=== PATIENT | female | born 1980 | race Caucasian/White ===

== ENCOUNTER 2018-10-23 13:15 | Emergency (ER) | payer OTHER ==
[~2018-10-23] VITALS: Ht 175.3 cm; Wt 127.0 kg
--- OUTSIDE RECORDS SUMMARY | 2018-10-23 13:17 | XMS REPORT | Continuity of Care Document ---
Author Author [facility] Interface Address Unknown Phone Unavailable Problems Problem Status Onset Date Classification Date Reported Comments Source Exposure to Influenzavirus 06/30/2017 Diagnosis 06/30/2017 [facility] Tobacco user 06/30/2017 Diagnosis 06/30/2017 [facility] Tobacco use cessation education 06/30/2017 Diagnosis 06/30/2017 [facility] Lower respiratory tract infection 04/28/2016 Diagnosis 04/28/2016 [facility] Acute upper respiratory infection 03/29/2016 Diagnosis 04/28/2016 [facility] Discharge Diagnosis: Acute cystitis 04/08/2015 04/11/2015 [facility] Discharge Diagnosis: Ureterolithiasis 04/08/2015 04/11/2015 [facility] PAIN Active 04/08/2015 [facility] Acute Upper Respiratory Infection Problem 06/30/2017 [facility] Medications Medication Details Route Status Patient Instructions Ordering Provider Order Date Source Acetaminophen 325 MG / Hydrocodone Bitartrate 5 MG Oral Tablet [[place] 5/325] 1 tab, Route: PO, Drug Form: TAB, Dosing Weight 122.273, kg, ONCE, STAT, Start date: 04/08/15 9:14:00, Stop date: 04/08/15 9:14:00Notes: (Same as: [place] 325/5) Do not exceed 4gm/day of acetaminophen. Inactive 04/08/2015 [facility] Ondansetron 4 MG Disintegrating Tablet [Zofran] 4 mg=1 tab, PO, TID, Dissolve tab under tongue, X 5 day, # 15 tab, 0 Refill(s) Active 04/08/2015 [facility] ciprofloxacin 500 mg oral tablet 500 mg=1 tab, PO, Q12H, X 7 day, # 14 tab, 0 Refill(s) Active 04/08/2015 [facility] tramadol hydrochloride 50 MG Oral Tablet 50 mg=1 tab, PO, Q6H, PRN Pain, X 7 day, # 28 tab, 0 Refill(s) Active 04/08/2015 [facility] ibuprofen 600 mg oral tablet 600 mg=1 tab, PO, Q8H, PRN pain, # 30 tab, 0 Refill(s) Active 04/08/2015 [facility] Tamsulosin hydrochloride 0.4 MG Oral Capsule [Flomax] 0.4 mg=1 cap, PO, Daily, # 30 cap, 0 Refill(s) Active 04/08/2015 [facility] Ceftriaxone 1 gm, Route: IVPB, Drug form: PDR/INJ, ONCE, Dosing Weight 122.273, kg, Priority: STAT, Start date: 04/08/15 8:28:00, Stop date: 04/08/15 8:28:00 Inactive 04/08/2015 [facility] Ondansetron 4 mg, Route: IVP, ONCE, Dosing Weight 122.273, kg, Priority: STAT, Start date: 04/08/15 6:10:00, Stop date: 04/08/15 6:10:00 Inactive 04/08/2015 [facility] Morphine 4 mg, Route: IVP, ONCE, Dosing Weight 122.273, kg, Priority: STAT, Start date: 04/08/15 6:10:00, Stop date: 04/08/15 6:10:00 Inactive 04/08/2015 [facility] Ketorolac 30 mg, Route: IVP, ONCE, Dosing Weight 122.273, kg, Priority: STAT, Start date: 04/08/15 6:10:00, Stop date: 04/08/15 6:10:00 Inactive 04/08/2015 [facility] Saline Flush 0.9% 10 mL, Route: IVP, Drug Form: INJ, Dosing Weight 122.273, kg, PRN, PRN Line Flush, Start date: 04/08/15 6:10:00, Duration: 30 day, Stop date: 05/08/15 6:09:00Notes: (Same as: [facility] Posiflush) Inactive 04/08/2015 [facility] Sodium Chloride 0.154 MEQ/ML Injectable Solution 1,000 mL, Infuse Over: 1 hr, Route: IV, ONCE, Priority: STAT, Dosing Weight 122.273 kg, Start date: 04/08/15 6:10:00, Duration: 1 doses or times, Stop date: 04/08/15 6:10:00 Inactive 04/08/2015 [facility] Chantix Starting Month Box 0.5 mg (11)-1 mg (42) tablets in dose pack Chantix Starting Month Box 0.5 mg (11)-1 mg (42) tablets in dose pack 1 starter pack as directed Active [facility] Acetaminophen 325 MG / Hydrocodone Bitartrate 10 MG Oral Tablet hydrocodone 10 mg-acetaminophen 325 mg tablet 1 TABLET BY MOUTH EVERY FOUR HOURS NEEDED FOR PAIN Active [facility] Oseltamivir 75 MG Oral Capsule oseltamivir 75 mg capsule Take 1 capsule every day by oral route with meals for 10 days. Active [facility] Percocet Percocet Active [facility] 200 ACTUAT Albuterol 0.09 MG/ACTUAT Metered Dose Inhaler albuterol sulfate HFA 90 mcg/actuation aerosol inhaler Inhale 2 puffs every 4 hours by inhalation route as needed for 14 days. Active [facility] Brompheniramine Maleate 0.4 MG/ML / Dextromethorphan Hydrobromide 2 MG/ML / Pseudoephedrine Hydrochloride 6 MG/ML Oral Solution [Bromfed DM] Bromfed DM 2 mg-30 mg-10 mg/5 mL syrup Take 10 mL every 6 hours by oral route as needed for 5 days. Active [facility] Azithromycin 250 MG Oral Tablet Zithromax Z-Reid 250 mg tablet TAKE 2 TABLETS (500 MG) BY ORAL ROUTE ONCE DAILY FOR 1 DAY THEN 1 TABLET (250 MG) BY ORAL ROUTE ONCE DAILY FOR 4 DAYS Active [facility] Allergies, Adverse Reactions, Alerts Substance Category Reaction Severity Reaction type Status Date Reported Comments Source Immunizations Immunization Date Given Site Status Last Updated Comments Source influenza, injectable, quadrivalent 03/15/2017 completed [facility] influenza, seasonal, injectable 02/13/2016 completed [facility] Results Order Name Results Value Reference Range Date Interpretation Comments Source Influenza A negative 06/30/2017 [facility] Influenza B negative 06/30/2017 [facility] RESULT negative 04/28/2016 [facility] SWAB LOCATION Left and Right tonsillar pillars 04/28/2016 [facility] RESULT negative 03/29/2016 [facility] SWAB LOCATION Left and Right tonsillar pillars 03/29/2016 [facility] CHEM PANEL B/C Ratio 9 6 - 25 04/08/2015 [facility] CHEM PANEL AGAP 14.8 meq/L 10.0 - 20.0 04/08/2015 [facility] CHEM PANEL A/G Ratio 0.9 0.7 - 1.6 04/08/2015 [facility] CHEM PANEL Globulin 4.0 g/dL 2.0 - 4.0 04/08/2015 [facility] CHEM PANEL eGFR 61 mL/min/1.73m2 04/08/2015 Result Comment: The eGFR is calculated using the CKD-EPI formula. In most young, healthy individuals the eGFR will be >90 mL/min/1.73m2. The eGFR declines with age. An eGFR of 60-89 may be normal in some populations, particularly the elderly, for whom the CKD-EPI formula has not been extensively validated. Use of the eGFR is not recommended in the following populations: Individuals with unstable creatinine concentrations, including patients and those with serious co-morbid conditions. Patients with extremes in muscle mass or diet. The data above are obtained from the National Kidney Disease Education Program (NKDEP) which additionally recommends that when the eGFR is used in patients with extremes of body mass index for purposes of drug dosing, the eGFR should be multiplied by the estimated BMI. [facility] CHEM PANEL Alk Phos 61 unit/L 39 - 136 04/08/2015 [facility] CHEM PANEL AST 37 unit/L 0 - 37 04/08/2015 [facility] CHEM PANEL Bili Total 0.4 mg/dL 0.2 - 1.3 04/08/2015 [facility] CHEM PANEL BUN 11 mg/dL 7 - 22 04/08/2015 [facility] CHEM PANEL Sodium Lvl 138 meq/L 135 - 145 04/08/2015 [facility] CHEM PANEL Creatinine Lvl 1.17 mg/dL 0.50 - 1.40 04/08/2015 [facility] CHEM PANEL Chloride Lvl 105 meq/L 95 - 109 04/08/2015 [facility] CHEM PANEL Potassium Lvl 4.8 meq/L 3.5 - 5.1 04/08/2015 [facility] CHEM PANEL CO2 23 meq/L 24 - 32 04/08/2015 [facility] CHEM PANEL Albumin Lvl 3.6 g/dL 3.5 - 5.0 04/08/2015 [facility] CHEM PANEL ALT 31 unit/L 0 - 65 04/08/2015 [facility] CHEM PANEL Total Protein 7.6 g/dL 6.4 - 8.4 04/08/2015 [facility] CHEM PANEL Calcium Lvl 8.9 mg/dL 8.5 - 10.5 04/08/2015 [facility] CHEM PANEL Glucose Lvl 114 mg/dL 70 - 99 04/08/2015 [facility] HEMATOLOGY MPV 8.5 fL 7.4 - 10.4 04/08/2015 [facility] HEMATOLOGY Platelet 244 K/CMM 133 - 450 04/08/2015 [facility] HEMATOLOGY RDW 16.0 % 11.5 - 14.5 04/08/2015 [facility] HEMATOLOGY MCV 81.2 fL 80.0 - 98.0 04/08/2015 [facility] HEMATOLOGY WBC 8.1 K/CMM 3.7 - 10.4 04/08/2015 [facility] HEMATOLOGY MCHC 31.4 g/dL 32.0 - 36.0 04/08/2015 [facility] [place] MCH 25.5 pg 27.0 - 31.0 04/08/2015 [facility] HEMATOLOGY Hct 40.7 % 36.0 - 48.0 04/08/2015 [facility] HEMATOLOGY RBC 5.01 M/CMM 4.20 - 5.40 04/08/2015 [facility] HEMATOLOGY Hgb 12.8 g/dL 12.0 - 16.0 04/08/2015 [facility] HEMATOLOGY Lymphocytes # 1.6 K/CMM 1.0 - 5.5 04/08/2015 [facility] HEMATOLOGY Segs-Bands # 5.9 K/CMM 1.5 - 8.1 04/08/2015 [facility] HEMATOLOGY Eosinophils # 0.1 K/CMM 0.0 - 0.5 04/08/2015 [facility] HEMATOLOGY Monocytes # 0.5 K/CMM 0.0 - 0.8 04/08/2015 [facility] HEMATOLOGY Basophils 0.3 % 0.0 - 1.0 04/08/2015 [facility] HEMATOLOGY Lymphocytes 19.4 % 20.0 - 40.0 04/08/2015 [facility] HEMATOLOGY Segs 73.5 % 45.0 - 75.0 04/08/2015 [facility] HEMATOLOGY Eosinophils 1.1 % 0.0 - 4.0 04/08/2015 [facility] HEMATOLOGY Monocytes 5.7 % 2.0 - 12.0 04/08/2015 [facility] URINE AND STOOL UA Leuk Est Negative (04/08/15 6:24 AM) Negative 04/08/2015 [facility] URINE AND STOOL UA WBC 13 /HPF 0 - 5 04/08/2015 [facility] URINE AND STOOL UA Sq Epi Many /LPF Few /LPF 04/08/2015 [facility] URINE AND STOOL UA Color Ysabel 04/08/2015 [facility] URINE AND STOOL UA Ketones Negative mg/dL Negative mg/dL 04/08/2015 [facility] URINE AND STOOL UA Glucose Negative mg/dL Negative mg/dL 04/08/2015 [facility] URINE AND STOOL UA Blood Small *ABN* (04/08/15 6:24 AM) Negative 04/08/2015 [facility] URINE AND STOOL UA Bili Negative *NA* (04/08/15 6:24 AM) Negative 04/08/2015 [facility] URINE AND STOOL UA Mucus Few /LPF None Seen /LPF 04/08/2015 [facility] URINE AND STOOL UA RBC 79 /HPF 0 - 2 04/08/2015 [facility] URINE AND STOOL UA Nitrite Positive *ABN* (04/08/15 6:24 AM) Negative 04/08/2015 [facility] URINE AND STOOL UA Urobilinogen 4.0 mg/dL 0.1 - 1.0 04/08/2015 [facility] URINE AND STOOL UA Hyal Cast 1 /LPF 0 - 2 04/08/2015 [facility] URINE AND STOOL UA CaOx Ayah Few /HPF None Seen /HPF 04/08/2015 [facility] URINE AND STOOL UA Turbidity Clear (04/08/15 6:24 AM) Clear 04/08/2015 [facility] URINE AND STOOL UA Protein 30 mg/dL Negative mg/dL 04/08/2015 [facility] URINE AND STOOL UA Spec Grav 1.023 <=1.030 04/08/2015 [facility] URINE AND STOOL UA pH 5.0 5.0 - 8.0 04/08/2015 [facility] URINE CHEM U Preg Negative (04/08/15 6:24 AM) Negative 04/08/2015 [facility] Renal Stone CT Renal Stone CT CLINICAL HISTORY: Acute left-sided abdominal pain. CT abdomen and pelvis without contrast. COMPARISON: No prior. Left hydronephrosis and hydroureter. Perinephric and periureteric stranding on the left. Left ureter appears dilated to the ureterovesicular junction region. Although there are numerous phleboliths in the left side of the pelvis, a small calcification approximates the UVJ and is suspected to be 2 to 3 mm distal ureteral calculus. A punctate 2 mm nonobstructive left renal calculus is also present. Noncontrast visualized upper abdomen otherwise normal. No bowel obstruction or distention. No ascites. No evidence for appendicitis or diverticulitis. No ascites or pathologic pelvic fluid or mass otherwise. No retroperitoneal adenopathy. Abdominal aorta normal. IMPRESSION: Left hydronephrosis and hydroureter to approximately the UVJ level. Suspect small 3 mm distal ureteral calculus. SL:14 04/08/2015 - - Read by: Clayton Prater MD Dictated Date/time: 04/08/15 07:55 Electronically Signed by: Clayton Prater MD 04/08/15 08:02 FINAL REPORT [facility] Vital Signs Vital Sign Value Date Comments Source Diastolic (mm Hg) 80 06/30/2017 [facility] Height 69 06/30/2017 [facility] Systolic (mm Hg) 120 06/30/2017 [facility] Weight 262 06/30/2017 [facility] Diastolic (mm Hg) 80 04/28/2016 [facility] Height 68 04/28/2016 [facility] Systolic (mm Hg) 120 04/28/2016 [facility] Weight 237 04/28/2016 [facility] Diastolic (mm Hg) 76 03/29/2016 [facility] Height 68 03/29/2016 [facility] Systolic (mm Hg) 120 03/29/2016 [facility] Weight 247 03/29/2016 [facility] Temperature Oral (F) 98.3 F 04/08/2015 [facility] Respitory Rate 20 04/08/2015 [facility] Heart Rate 74 04/08/2015 [facility] Systolic (mm Hg) 124 04/08/2015 [facility] Diastolic (mm Hg) 72 04/08/2015 [facility] Temperature Oral (F) 98.3 F 04/08/2015 [facility] Heart Rate 67 04/08/2015 [facility] Systolic (mm Hg) 128 04/08/2015 [facility] Diastolic (mm Hg) 60 04/08/2015 [facility] Respitory Rate 20 04/08/2015 [facility] Weight 122.273 04/08/2015 [facility] Height 167.64 cm 04/08/2015 [facility] BMI Calculated 43.51 04/08/2015 [facility] Respitory Rate 18 04/08/2015 [facility] Temperature Oral (F) 97.7 F 04/08/2015 [facility] Systolic (mm Hg) 147 04/08/2015 [facility] Diastolic (mm Hg) 89 04/08/2015 [facility] Heart Rate 72 04/08/2015 [facility] Encounters Location Location Details Encounter Type Encounter Number Reason For Visit Attending Provider ADM Date DC Date Status Source [facility] [id number] Nohemi Montanez 04/08/2015 04/08/2015 [facility] [place] - [facility] - [id number] Diamante Johnson, [employer]: [address] [place] [address], Ph. [id number] Diamante Alex 03/29/2016 [facility] [place] [facility] - [id number] Diamante Alex, [employer]ER: [address] [place] [address], Ph. [id number] Diamante Alex 03/29/2016 [facility] [place] - [facility] - [id number] Garland Lombardo, [employer]ER-C: [address] [place] [address], Ph. [phone] [id number] Garland Lombardo 04/28/2016 [facility] Outpatient [id number] JAMES LOPEZ 06/22/2016 Active [facility] - [facility] - [id number] Tigre Lebron, [employer]ER-C: [address] [place] [address], Ph. [id number] Tigre Lebron 06/30/2017 [facility] Procedures Procedure Code Date Perfomer Comments Source Tubal Ligation [facility]
--- OUTSIDE RECORDS SUMMARY | 2018-10-23 13:17 | XMS REPORT | Encounter Summary ---
Author Organization Unknown Address [address] [place] [address] Phone [phone] Reason for Visit cough, sore throat, congestion x 2 days Instructions 1. Acute upper respiratory infection rapid strep group A, throat Bromfed DM 2 mg-30 mg-10 mg/5 mL syrup albuterol sulfate HFA 90 mcg/actuation aerosol inhaler Discussion Note: None recorded. Patient educational handouts: No information available. Plan of Care Reminders Provider Appointments None recorded. Lab Rapid Strep Group a, Throat 03/29/2016 [facility] Referral None recorded. Procedures None recorded. Surgeries None recorded. Imaging None recorded. Medications Name Start Date albuterol sulfate HFA 90 mcg/actuation aerosol inhaler Inhale 2 puffs every 4 hours by inhalation route as needed for 14 days. Bromfed DM 2 mg-30 mg-10 mg/5 mL syrup Take 10 mL every 6 hours by oral route as needed for 5 days. Medications Administered None recorded. Vitals Height Weight BMI Blood Pressure 5 ft 8 in 247 lbs 37.6 120/76 Lab Results Date Name Result Description Value Range Status Rapid Strep Group a, Throat Result negative Swab Location Left and Right tonsillar pillars Allergies Name Reaction Severity Onset NKDA Problems Name Status Onset Date Source Acute Upper Respiratory Infection Active Encounter Procedures Date Name Performed by Tubal Ligation Information not available Vaccine List Vaccine Type influenza, seasonal, injectable 02/12/2016 Social History Smoking Status Current Every Day Smoker Past Encounters 03/29/2016 Acute Upper Respiratory Infection ARNULFO Gamb[place]: [address] [place] [address], Ph. History of Present Illness [id number] Reported By: Patient HPI: Location: throat, chest. Quality: productive cough, sore throat, colored phlegm, nasal/sinus congestion. Duration: 2days. Severity: moderate. Onset/Timing: sudden. Context: no foreign travel, sick contact, smoker. Modifying factors: OTC medication. Associated Symptoms: no wheezing, no change in number of pillows needed to sleep at night, no sweats, no significant weight gain, no significant weight loss, no morning cough, no vomiting, no diarrhea, no rash, no nausea, green sputum, shortness of breath, fatigue, sore throat Review of Systems Basic Reported By: Patient Constitutional: Constitutional: no fever Eyes: Eyes: no eye complaints Armr-Fhdf-Equzv-Throat: Ears: ear pain. Nose: nose/sinus problems. Mouth/Throat: no bleeding gums, no mouth complaints, no teeth problems, sore throat Cardiovascular: Cardiovascular: no chest pain, no shortness of breath, no known heart murmur Respiratory: Respiratory: no wheezing, no shortness of breath, cough Gastrointestinal: Gastrointestinal: no abdominal pain, no vomiting / diarrhea Genitourinary: Genitourinary: no urinary complaints, no discharge Musculoskeletal: Musculoskeletal: no muscle aches, no muscle weakness, no arthralgias/joint pain, no back pain Skin: Skin: no abnormal / changing mole, no jaundice, no rashes Neurologic: Neurologic: no loss of consciousness, no weakness, no numbness, no seizures, no dizziness, no headaches Physical Exam Adult Basic, Adult Female Complete Constitutional: General Appearance: healthy-appearing, well-nourished, well-developed. Level of Distress: NAD. Ambulation: ambulating normally Psychiatric: Mental Status: active and alert. Orientation: to time, to place, to person Eyes: Lids and Conjunctivae: non-injected, no discharge, no pallor Btg-Vqov-Iozvz-Throat: Ears: no lesions on external ear, no outer ear tenderness, EACs clear, TMs clear. Hearing: no hearing loss. Nose: no lesions on external nose, no septal deviation, nasal passages clear, no sinus tenderness, post nasal drip; turbinates swollen. Lips, Teeth, and Gums: no mouth or lip ulcers, no bleeding gums, normal dentition. Oropharynx: moist mucous membranes, no exudates, tonsils not enlarged, erythema Neck: Lymph Nodes: no cervical LAD Lungs: Respiratory effort: no dyspnea, no tachypnea, no use of accessory muscles. Auscultation: breath sounds normal Cardiovascular: Heart Auscultation: RRR Neurologic: Gait and Station: normal gait
--- OUTSIDE RECORDS SUMMARY | 2018-10-23 13:17 | XMS REPORT | Summary of Care ---
Author Author [facility] Address Unknown Phone Unavailable Encounter CARO Mcrae(AYUSH) [id number] Date(s): 04/08/15 - 04/08/15 [facility] [address] [place] [address]- Discharge Diagnosis: Acute cystitis Discharge Diagnosis: Ureterolithiasis Discharge Disposition: Home Attending Physician: Nohemi Montanez MD Vital Signs 1 2 3 Most recent to oldest [Reference Range]: 167.64 cm (04/08/15 5:40 AM) Height 98.3 DegF (04/08/15 9:48 AM) 98.3 DegF (04/08/15 7:57 AM) 97.7 DegF (04/08/15 5:40 AM) Temperature Oral [96.4-99.1 DegF] 124/72 mmHg (04/08/15 9:48 AM) 128/60 mmHg (04/08/15 7:57 AM) 147/89 mmHg *HI* (04/08/15 5:40 AM) Blood Pressure [90-140/60-90 mmHg] 20 BRMIN (04/08/15 9:48 AM) 20 BRMIN (04/08/15 7:57 AM) 18 BRMIN (04/08/15 5:40 AM) Respiratory Rate [14-20 BRMIN] 74 bpm (04/08/15 9:48 AM) 67 bpm (04/08/15 7:57 AM) 72 bpm (04/08/15 5:40 AM) Peripheral Pulse Rate [60-100 bpm] 122.273 kg (04/08/15 5:40 AM) Weight 43.51 m2 (04/08/15 5:40 AM) Body Mass Index Problem List No data available for this section Allergies, Adverse Reactions, Alerts Substance Reaction Severity Status NKDA Active Medications cefTRIAXone 1 gm, Route: IVPB, Drug form: PDR/INJ, ONCE, Dosing Weight 122.273, kg, Priority : STAT, Start date: 04/08/15 8:28:00, Stop date: 04/08/15 8:28:00 Start Date: 04/08/15 Stop Date: 04/08/15 Status: Completed ciprofloxacin 500 mg oral tablet 500 mg=1 tab, PO, Q12H, X 7 day, # 14 tab, 0 Refill(s) Start Date: 04/08/15 Stop Date: 04/15/15 Status: Ordered Flomax 0.4 mg oral capsule 0.4 mg=1 cap, PO, Daily, # 30 cap, 0 Refill(s) Start Date: 04/08/15 Status: Ordered ibuprofen 600 mg oral tablet 600 mg=1 tab, PO, Q8H, PRN pain, # 30 tab, 0 Refill(s) Start Date: 04/08/15 Status: Ordered ketOROLAC 30 mg, Route: IVP, ONCE, Dosing Weight 122.273, kg, Priority: STAT, Start date: 04/08/15 6:10:00, Stop date: 04/08/15 6:10:00 Start Date: 04/08/15 Stop Date: 04/08/15 Status: Completed morphine Sulfate 4 mg, Route: IVP, ONCE, Dosing Weight 122.273, kg, Priority: STAT, Start date: 06/08/14 6:10:00, Stop date: 04/08/15 6:10:00 Start Date: 04/08/15 Stop Date: 04/08/15 Status: Completed Valyermo 5/325 oral tablet 1 tab, Route: PO, Drug Form: TAB, Dosing Weight 122.273, kg, ONCE, STAT, Start d ate: 04/08/15 9:14:00, Stop date: 04/08/15 9:14:00 Notes: (Same as: Valyermo 325/5) Do not exceed 4gm/day of acetaminophen. Start Date: 04/08/15 Stop Date: 04/08/15 Status: Completed ondansetron 4 mg, Route: IVP, ONCE, Dosing Weight 122.273, kg, Priority: STAT, Start date: 06/08/14 6:10:00, Stop date: 04/08/15 6:10:00 Start Date: 04/08/15 Stop Date: 04/08/15 Status: Completed Saline Flush 0.9% 10 mL, Route: IVP, Drug Form: INJ, Dosing Weight 122.273, kg, PRN, PRN Line Flus h, Start date: 04/08/15 6:10:00, Duration: 30 day, Stop date: 05/08/15 6:09:00 Notes: (Same as: BD Posiflush) Start Date: 04/08/15 Stop Date: 04/08/15 Status: Discontinued Sodium Chloride 0.9% (Bolus) IV 1,000 mL, Infuse Over: 1 hr, Route: IV, ONCE, Priority: STAT, Dosing Weight 122. 273 kg, Start date: 04/08/15 6:10:00, Duration: 1 doses or times, Stop date: 6:10:00 Start Date: 04/08/15 Stop Date: 04/08/15 Status: Completed tramadol 50 mg oral tablet 50 mg=1 tab, PO, Q6H, PRN Pain, X 7 day, # 28 tab, 0 Refill(s) Start Date: 04/08/15 Stop Date: 04/15/15 Status: Ordered Zofran ODT 4 mg oral tablet, disintegrating 4 mg=1 tab, PO, TID, Dissolve tab under tongue, X 5 day, # 15 tab, 0 Refill(s) Start Date: 04/08/15 Stop Date: 04/13/15 Status: Ordered Results ELECTROLYTES Most recent to 1 oldest [Reference Range]: Sodium Lvl [135-145 138 mEq/L mEq/L] (04/08/15 6:24 AM) Potassium Lvl 4.8 mEq/L [3.5-5.1 mEq/L] (04/08/15 6:24 AM) Chloride Lvl [95-109 105 mEq/L mEq/L] (04/08/15 6:24 AM) CO2 [24-32 mEq/L] 23 mEq/L *LOW* (04/08/15 6:24 AM) AGAP [10.0-20.0 14.8 mEq/L mEq/L] (04/08/15 6:24 AM) CHEM PANEL Most recent to 1 oldest [Reference Range]: Creatinine Lvl 1.17 mg/dL [0.50-1.40 mg/dL] (04/08/15 6:24 AM) eGFR 61 mL/min/1.73m2 1 *NA* (04/08/15 6:24 AM) BUN [7-22 mg/dL] 11 mg/dL (04/08/15 6:24 AM) B/C Ratio [6-25] 9 (04/08/15 6:24 AM) Glucose Lvl [70-99 114 mg/dL mg/dL] *HI* (04/08/15 6:24 AM) Total Protein 7.6 g/dL [6.4-8.4 g/dL] (04/08/15 6:24 AM) Albumin Lvl [3.5-5.0 3.6 g/dL g/dL] (04/08/15 6:24 AM) Globulin [2.0-4.0 4.0 g/dL g/dL] (04/08/15 6:24 AM) A/G Ratio [0.7-1.6] 0.9 (04/08/15 6:24 AM) Calcium Lvl 8.9 mg/dL [8.5-10.5 mg/dL] (04/08/15 6:24 AM) ALT [0-65 unit/L] 31 unit/L (04/08/15 6:24 AM) AST [0-37 unit/L] 37 unit/L (04/08/15 6:24 AM) Alk Phos [39-136 61 unit/L unit/L] (04/08/15 6:24 AM) Bili Total [0.2-1.3 0.4 mg/dL mg/dL] (04/08/15 6:24 AM) 1Result Comment: The eGFR is calculated using the [...] from the National Kid[employer] Disease Education Program ( NKDEP) which additionally recommends that when the eGFR is used in patients with extremes of body mass index for purposes of drug dosing, the eGFR should be mul tiplied by the estimated BMI. URINE CHEM Most recent to 1 oldest [Reference Range]: U Preg [Negative] Negative (04/08/15 6:24 AM) URINE AND STOOL Most recent to 1 oldest [Reference Range]: UA Turbidity [Clear] Clear (04/08/15 6:24 AM) UA Color Ysabel *NA* (04/08/15 6:24 AM) UA pH [5.0-8.0] 5.0 (04/08/15 6:24 AM) UA Spec Grav 1.023 [<=1.030] (04/08/15 6:24 AM) UA Glucose [Negative Negative mg/dL mg/dL] *NA* (04/08/15 6:24 AM) UA Blood [Negative] Small *ABN* (04/08/15 6:24 AM) UA Ketones [Negative Negative mg/dL mg/dL] *NA* (04/08/15 6:24 AM) UA Protein [Negative 30 mg/dL mg/dL] *ABN* (04/08/15 6:24 AM) UA Urobilinogen 4.0 mg/dL [0.1-1.0 mg/dL] *HI* (04/08/15 6:24 AM) UA Bili [Negative] Negative *NA* (04/08/15 6:24 AM) UA Leuk Est Negative [Negative] (04/08/15 6:24 AM) UA Nitrite Positive [Negative] *ABN* (04/08/15 6:24 AM) UA WBC [0-5 /HPF] 13 /HPF *HI* (04/08/15 6:24 AM) UA RBC [0-2 /HPF] 79 /HPF *HI* (04/08/15 6:24 AM) UA Sq Epi [Few /LPF] Many /LPF *ABN* (04/08/15 6:24 AM) UA Hyal Cast [0-2 1 /LPF /LPF] (04/08/15 6:24 AM) UA CaOx Ayah [None Few /HPF Seen /HPF] *NA* (04/08/15 6:24 AM) UA Mucus [None Seen Few /LPF /LPF] *NA* (04/08/15 6:24 AM) HEMATOLOGY Most recent to 1 oldest [Reference Range]: WBC [3.7-10.4 K/CMM] 8.1 K/CMM (04/08/15 6:24 AM) RBC [4.20-5.40 5.01 M/CMM M/CMM] (04/08/15 6:24 AM) Hgb [12.0-16.0 g/dL] 12.8 g/dL (04/08/15 6:24 AM) Hct [36.0-48.0 %] 40.7 % (04/08/15 6:24 AM) MCV [80.0-98.0 fL] 81.2 fL (04/08/15 6:24 AM) MCH [27.0-31.0 pg] 25.5 pg *LOW* (04/08/15:24 AM) MCHC [32.0-36.0 31.4 g/dL g/dL] *LOW* (04/08/15:24 AM) RDW [11.5-14.5 %] 16.0 % *HI* (04/08/15:24 AM) Platelet [133-450 244 K/CMM K/CMM] (04/08/15 6:24 AM) MPV [7.4-10.4 fL] 8.5 fL (04/08/15 6:24 AM) Segs [45.0-75.0 %] 73.5 % (04/08/15 6:24 AM) Lymphocytes 19.4 % [20.0-40.0 %] *LOW* (04/08/15:24 AM) Monocytes [2.0-12.0 5.7 % %] (04/08/15 6:24 AM) Eosinophils [0.0-4.0 1.1 % %] (04/08/15 6:24 AM) Basophils [0.0-1.0 0.3 % %] (04/08/15 6:24 AM) Segs-Bands # 5.9 K/CMM [1.5-8.1 K/CMM] (11/25/15 6:24 AM) Lymphocytes # 1.6 K/CMM [1.0-5.5 K/CMM] (04/08/15 6:24 AM) Monocytes # [0.0-0.8 0.5 K/CMM K/CMM] (04/08/15 6:24 AM) Eosinophils # 0.1 K/CMM [0.0-0.5 K/CMM] (04/08/15 6:24 AM) Immunizations No data available for this section Procedures No data available for this section Social History Social History Type Response Smoking Status Never smoker; Exposure to Tobacco Smoke None; Cigarette Smoking Last 365 Days No; Reg Smoking Cessation Counseling Yes Assessment and Plan No data available for this section
--- OUTSIDE RECORDS SUMMARY | 2018-10-23 13:17 | XMS REPORT | Encounter Summary ---
Author Organization Unknown Address [address] [place] [address] Phone [phone] Care Team Providers Care Assorter Name Role Phone Gabriella Childs 3 [phone] Reason for Visit Medical Complaint Instructions 1. Exposure to Influenzavirus rapid flu (A+B) oseltamivir 75 mg capsule 2. Tobacco user stopping smoking: care instructions Chantix Starting Month Box 0.5 mg (11)-1 mg (42) tablets in dose pack 3. Tobacco use cessation education stopping smokeless tobacco use: care instructions Discussion Note Pt is aaox3 and in NAD; verbalizes understanding of all instructions and has no further questions at this time Plan of Care Patient Instructions Take medications as prescribed and discussed; follow up with your PCP within 2-3 days or sooner should symptoms worsen. Go to the ER if you experience shortness of breath or difficulty breathing despite using medications prescribed today. Reminders Provider Appointments Medical 07/01/2017 9:15AM [id number], TECH Lab Rapid Flu (A+B) 06/30/2017 [facility] Referral None recorded. Procedures None recorded. Surgeries None recorded. Imaging None recorded. Medications Name Start Date Chantix Starting Month Box 0.5 mg (11)-1 mg (42) tablets in dose pack 1 starter pack as directed hydrocodone 10 mg-acetaminophen 325 mg tablet 1 TABLET BY MOUTH EVERY FOUR HOURS NEEDED FOR PAIN oseltamivir 75 mg capsule Take 1 capsule every day by oral route with meals for 10 days. Percocet Medications Administered None recorded. Vitals Height Weight BMI Blood Pressure 5 ft 9 in 262 lbs 38.7 kg/m2 120/80 mm[Hg] Lab Results Date Name Specimen Result Interpretation Description Value Range Status Address Rapid Flu (A+B) Influenza a negative [facility]: [address] [place] [address] Influenza B negative [facility]: [address] [place] [address] Allergies Code Code System Name Reaction Severity Status Onset NKDA Problems Name Status Onset Date Source Acute Upper Respiratory Infection Active Encounter Procedures Date Name Performed by Tubal Ligation Information not available Vaccine List Vaccine Type influenza, injectable, quadrivalent 03/15/2017 influenza, seasonal, injectable 02/13/2016 Social History Smoking Status Current Every Day Smoker Past Encounters 06/30/2017 Exposure to Influenzavirus; Tobacco User; Tobacco Use Cessation Education [facility]: [address] [place] [address], Ph. History of Present Illness [id number] Reported By: Patient HPI: Context: no sick contacts, no foreign travel, non-smoker. Associated Symptoms: no sputum production, no shortness of breath, no wheezing, no change in number of pillows needed to sleep at night, no sweats, no significant weight gain, no significant weight loss, no morning cough, no sore throat, no vomiting, no diarrhea, no rash, no nausea, no fever, no headache, muscle aches Review of Systems:ROS as noted in the HPI Review of Systems Basic Reported By: Patient Physical Exam Adult Basic, Adult Female Complete Reported By: Patient Constitutional: General Appearance: healthy-appearing, well-nourished, well-developed. Level of Distress: NAD Psychiatric: Mental Status: active and alert. Orientation: to time, to place, to person [id number]-Throat: Ears: no lesions on external ear, no outer ear tenderness, EACs clear, TMs clear. Hearing: no hearing loss. Nose: no lesions on external nose, nares patent, no septal deviation, nasal passages clear, no sinus tenderness, no nasal discharge. Lips, Teeth, and Gums: no mouth or lip ulcers, no bleeding gums, normal dentition. Oropharynx: moist mucous membranes, no erythema, no exudates, tonsils not enlarged Neck: Neck: FROM. Lymph Nodes: no cervical LAD, no supraclavicular LAD Lungs: Respiratory effort: no dyspnea, no tachypnea, no use of accessory muscles, no intercostal retractions. Auscultation: breath sounds normal Cardiovascular: Heart Auscultation: RRR, no murmurs. Neck vessels: no carotid bruits. Pulses including femoral / pedal: normal throughout Neurologic: Gait and Station: normal gait, normal station
--- OUTSIDE RECORDS SUMMARY | 2018-10-23 13:18 | XMS REPORT | Encounter Summary ---
Author Organization Unknown Address [address] [place] [address] Phone [phone] Reason for Visit Medical Complaint Instructions 1. Lower respiratory tract infection Zithromax Z-Reid 250 mg tablet Discussion Note: None recorded. Patient educational handouts: No information available. Plan of Care Patient Instructions take medications as prescribed. otc mucinex dm. may continue with albuterol to help with cough. follow up pcp Reminders Provider Appointments None recorded. Lab None recorded. Referral None recorded. Procedures None recorded. Surgeries None recorded. Imaging None recorded. Medications Name Start Date albuterol sulfate HFA 90 mcg/actuation aerosol inhaler Inhale 2 puffs every 4 hours by inhalation route as needed for 14 days. Bromfed DM 2 mg-30 mg-10 mg/5 mL syrup Take 10 mL every 6 hours by oral route as needed for 5 days. Zithromax Z-Reid 250 mg tablet TAKE 2 TABLETS (500 MG) BY ORAL ROUTE ONCE DAILY FOR 1 DAY THEN 1 TABLET (250 MG) BY ORAL ROUTE ONCE DAILY FOR 4 DAYS Medications Administered None recorded. Vitals Height Weight BMI Blood Pressure 5 ft 8 in 237 lbs 36 120/80 Lab Results Date Name Result Description Value [...] Status Current Every Day Smoker Past Encounters 04/28/2016 Lower Respiratory Tract Infection [facility]: [address] [place] [address], Ph. 03/29/2016 Acute Upper Respiratory Infection [facility]: [address] [place] [address], Ph. History of Present Illness Cough Reported By: Patient HPI: Location: chest. Quality: productive cough. Duration: 14 days. Severity: moderate. Onset/Timing: gradual. Context: no sick contacts, no foreign travel, non- smoker. Associated Symptoms: no shortness of breath, no wheezing, no sweats, no significant weight gain, no significant weight loss, no morning cough, no sore throat, no vomiting, no diarrhea, no rash, no nausea, no fever/chills, no muscle aches, no headache, yellow-green, thick sputum Review of Systems:ROS as noted in the HPI Review of Systems Basic Reported By: Patient Physical Exam Adult Basic, Adult Female Complete Reported By: Patient Constitutional: General Appearance: healthy-appearing. Level of Distress: NAD. Ambulation: ambulating normally Psychiatric: Mental Status: active and alert Eyes: Lids and Conjunctivae: non-injected, no discharge Rkr-Vsco-Omhke-Throat: Ears: no lesions on external ear, no outer ear tenderness, EACs clear, TMs clear. Hearing: no hearing loss. Nose: no lesions on external nose, nares patent, no septal deviation, nasal passages clear, no sinus tenderness, no nasal discharge. Lips, Teeth, and Gums: no mouth or lip ulcers. Oropharynx: moist mucous membranes, no erythema Neck: Neck: trachea midline. Lymph Nodes: no cervical LAD Lungs: Respiratory effort: no dyspnea, no tachypnea, no use of accessory muscles, no intercostal retractions. Auscultation: breath sounds normal Cardiovascular: Heart Auscultation: no murmurs, tachycardia
[2018-10-23] MEDS ORDERED: VENTOLIN HFA18 GM BLADIN (13:32)
[2018-10-23] MEDS ORDERED: AZITHROMYCIN250 MG PO (13:32)
[2018-10-23] MEDS ORDERED: TESSALON PERLE100 MG PO (13:32)
--- NOTE | 2018-10-23 13:48 | Diagnostic Imaging Report ---
EXAMINATION: CXR 2 VIEW - HOPD INDICATION: Cough. COMPARISON: None FINDINGS: TUBES and LINES: None. LUNGS: Lungs are moderately inflated. There is no evidence of pneumonia or pulmonary edema. PLEURA: No pleural effusion or pneumothorax. HEART AND MEDIASTINUM: The cardiomediastinal silhouette is unremarkable. BONES AND SOFT TISSUES: No acute osseous lesion. Soft tissues are unremarkable. UPPER ABDOMEN: No free air under the diaphragm. IMPRESSION: No acute radiographic abnormality. Signed by: Dr. Francine West MD on 10/23/2018 1:45 PM
== END 2018-10-23 13:55 | disposition home or self-care (01) ==
LOC: FSED 13:15
DX: J20.9 Acute bronchitis, unspecified (principal)
CPT/HCPCS: 71046; 99282